=== PATIENT | male | born 1980 ===

== ENCOUNTER 2020-08-13 15:20 | Outpatient (REF) | payer BC, SELFPAY ==
[2020-08-16 12:49] LABS: SARS-CoV-2 RNA Undetected (Undetected); SARS-CoV-2 Specimen Source Nasopharynx
== END 2020-08-13 15:40 ==
LOC: NCHCN 15:20
PROVIDERS: PCP Nurse Practitioner Family; Visit Provider Nurse Practitioner Family
DX: Z20.828 Contact with and (suspected) exposure to other viral communicable diseases (principal)
CPT/HCPCS: U0003

== ENCOUNTER 2021-06-04 09:57 | Outpatient (REF) | payer BC, SELFPAY ==
[2021-06-04 14:21] LABS: Hemoglobin A1C 5.3 % (<5.7)
[2021-06-04 14:26] LABS: Calculated LDL 141 mg/dL (<100); Cholesterol 212 mg/dL (<200); HDL Cholesterol 49 mg/dL (40-60); Triglyceride 112 mg/dL (<150)
[2021-06-07 18:33] LABS: ALT 26 U/L (16-63); AST 17 U/L (15-37); Alkaline Phosphatase 69 U/L (46-116); Anion Gap 11.7 mmol/L (3-11); BUN 16 mg/dL (7-18); Bilirubin, Total 0.4 mg/dL (0.2-1.0); CO2 26.3 mmol/L (21.0-32.0); Calcium 9.8 mg/dL (8.5-10.1); Chloride 104 mmol/L (98-107); Glucose 100 mg/dL (74-106); Potassium 5.4 mmol/L (3.5-5.1); Sodium 142 mmol/L (136-145); Total Protein 8.3 g/dL (6.4-8.2)
== END 2021-06-04 09:58 | disposition home or self-care (01) ==
LOC: NCHCN 09:57
PROVIDERS: PCP Nurse Practitioner Family; Visit Provider Family Medicine
DX: E66.9 Obesity, unspecified (principal); Z72.89 Other problems related to lifestyle
CPT/HCPCS: 80053; 80061; 83036

== ENCOUNTER 2021-06-10 14:57 | Outpatient (REF) | payer BC, SELFPAY ==
[2021-06-10 21:56] LABS: Anion Gap 9.6 mmol/L (3-11); BUN 14 mg/dL (7-18); CO2 27.4 mmol/L (21.0-32.0); CREATININE 0.9 mg/dL (0.70-1.30); Calcium 9.4 mg/dL (8.5-10.1); Chloride 104 mmol/L (98-107); Glucose 90 mg/dL (74-106); Potassium 4.4 mmol/L (3.5-5.1); Sodium 141 mmol/L (136-145)
== END 2021-06-10 14:58 | disposition home or self-care (01) ==
LOC: NCHCN 14:57
PROVIDERS: PCP Nurse Practitioner Family; Visit Provider Family Medicine
DX: E87.5 Hyperkalemia (principal)
CPT/HCPCS: 80048

== ENCOUNTER 2022-01-16 15:03 | Outpatient (REF) | payer BC, SELFPAY ==
[2022-01-16 21:47] LABS: TSH (W/Ref FT4) 1.62 uIU/mL (0.36-3.74)
[2022-01-16 22:01] LABS: Vitamin D 25 Total 9.5 ng/mL (30-100)
== END 2022-01-16 15:04 | disposition home or self-care (01) ==
LOC: NCHCN 15:03
PROVIDERS: PCP Nurse Practitioner Family; Visit Provider Family Medicine
DX: R53.83 Other fatigue (principal); E66.01 Morbid (severe) obesity due to excess calories; F32.9 Major depressive disorder, single episode, unspecified
CPT/HCPCS: 82306; 84443

== ENCOUNTER 2022-08-14 15:47 | Outpatient (REF) | payer BC, SELFPAY ==
[2022-08-14 19:15] LABS: Hemoglobin A1C 5.2 % (<5.7)
[2022-08-14 19:16] LABS: ALT 25 U/L (16-63); AST 25 U/L (15-37); Alkaline Phosphatase 75 U/L (46-116); Anion Gap 5.9 mmol/L (3-11); BUN 13 mg/dL (7-18); Bilirubin, Total 0.4 mg/dL (0.2-1.0); CO2 28.1 mmol/L (21.0-32.0); CREATININE 0.9 mg/dL (0.70-1.30); Calcium 9.2 mg/dL (8.5-10.1); Chloride 103 mmol/L (98-107); Estimated GFR 109.36 (mL/min/1.73m2); Glucose 106 mg/dL (74-106); Potassium 5.1 mmol/L (3.5-5.1); Sodium 137 mmol/L (136-145); Total Protein 8.7 g/dL (6.4-8.2)
== END 2022-08-14 15:48 | disposition home or self-care (01) ==
LOC: NCHCN 15:47
PROVIDERS: PCP Nurse Practitioner Family; Visit Provider Family Medicine
DX: E55.9 Vitamin D deficiency, unspecified (principal); I10 Essential (primary) hypertension; E66.01 Morbid (severe) obesity due to excess calories; Z13.1 Encounter for screening for diabetes mellitus
CPT/HCPCS: 80053; 82306; 83036

== ENCOUNTER 2024-03-10 18:39 | Outpatient (REF) | payer BC, SELFPAY ==
[2024-03-14 12:24] LABS: IgA 487 mg/dL (85-499); Interpretation (See Note); Tissue Transglutaminase IgA 12.3 CU (<20.0)
== END 2024-03-10 18:40 | disposition home or self-care (01) ==
LOC: NCHCN 18:39
PROVIDERS: PCP Nurse Practitioner Family; Visit Provider Family Medicine
DX: K21.9 Gastro-esophageal reflux disease without esophagitis (principal)
CPT/HCPCS: 82784; 83516